=== PATIENT | female | born 1980 | race Caucasian/White ===

== ENCOUNTER 2017-08-03 18:32 | Emergency (ER) | payer MEDICAID, OTHER ==
[~2017-08-03] VITALS: Ht 165.1 cm; Wt 75.0 kg
[~2017-08-03 18:32] MED LIST: LOW-TAB2 PO
[2017-08-03 18:48] VITALS: BP 119/75; PULSE 72; RESP 18; TEMP 99; O2SAT 100
--- NOTE | 2017-08-03 23:25 | PD ---
HPI Chief Complaint: Psychiatric Symptoms Time Seen by Provider: 22:26 Travel History International Travel<30 days: No Contact w/Intl Traveler<30days: No Traveled to known affect area: No History of Present Illness HPI 37-year-old white female 15 week IUP presents as a transfer from [facility]. The patient was seen and treated for a Xanax overdose. She had been drinking alcohol earlier and had taken 10 0.5 mg Xanax after having an argument with her daughter. Time of ingestion was approximately 23 hours ago. Patient denies any homicidal ideation. No medical complaints. No nausea vomiting. She had been medically cleared and transferred here to [place] for psychological evaluation and treatment on her Leon act. The patient here states that she is not truly suicidal. No abdominal pain. No leakage of fluid or vaginal bleeding. PFSH Past Medical History Narrative Medical Anxiety Diminished Hearing: No Tetanus Vaccination: < 5 Years ?: LMP: 04/19/2017 Para: 2 Social History Alcohol Use: Yes (2-4 GLASSES WINE DAILY) Tobacco Use: No Substance Use: Yes (ETOH ABUSE) Allergies-Medications (Allergen,Severity, Reaction): Uncoded Allergies: NKDA (Allergy, Intermediate, 08/28/11) Reported Meds & Prescriptions Reported Meds & Active Scripts Active Reported Low-Ogestrel (Ethinyl Estradiol/Norgestrel) 28 Tab Pack 1 Tab PO DAILY Review of Systems General / Constitutional: No: Fever Eyes: No: Visual changes HENT: No: Headaches Cardiovascular: No: Chest Pain or Discomfort Respiratory: No: Shortness of Breath Gastrointestinal: No: Abdominal Pain Genitourinary: No: Dysuria Musculoskeletal: No: Pain Skin: No Rash Neurologic: No: Weakness Psychiatric: Positive: Anxiety, Depression, Suicidal Ideations, Mood Disorder, Substance Abuse, No: Disorder of Thought, Homicidal Ideation Endocrine: No: Polydipsia Hematologic/Lymphatic: No: Easy Bruising Physical Exam Narrative GENERAL: Well-developed, well-nourished in no apparent distress. Nontoxic appearing. HEAD: Normocephalic, atraumatic. EYES: Pupils equal round and reactive. Extraocular motions intact. No scleral icterus. No injection or drainage. ENT: Nose clear. Throat without erythema, tonsillar hypertrophy or exudate. Uvula midline. Airway patent. NECK: Trachea midline. Supple, nontender, moves head freely. No central bony tenderness or spasm. CARDIOVASCULAR: Regular rate and rhythm without murmurs, gallops, or rubs. RESPIRATORY: Clear to auscultation. Breath sounds equal bilaterally. No wheezes , rales, or rhonchi. GASTROINTESTINAL: Abdomen soft, non-tender, gravid. No hepato-splenomegaly, or palpable masses. No guarding. EXTREMITIES: No clubbing, cyanosis, or edema. No joint tenderness. BACK: Nontender without deformity. No flank tenderness. NEUROLOGICAL: Awake, alert and oriented x 3 .Cranial nerves grossly intact. Motor and sensory grossly within normal limits. Normal speech. Data Data Last Documented VS Vital Signs Date Time Temp Pulse Resp B/P (MAP) Pulse Ox O2 Delivery O2 Flow Rate FiO2 08/03/17 18:48 99.0 72 18 119/75 (90) 100 Room Air Orders Orders Psych Screen (08/03/17 20:24) MDM Medical Decision Making Medical Screen Exam Complete: Yes Emergency Medical Condition: Yes Medical Record Reviewed: Yes Differential Diagnosis MDM: High Differential diagnoses: Schizophrenia, schizoaffective disorder, bipolar, anxiety, depression, adjustment reaction, mood disorder NOS, ODD, depressive disorder NOS, dementia, dementia with agitation, psychosis NOS, substance induced mood disorder, DMDD, Asperger syndrome, infection,electrolyte abnormality, malingering. Narrative Course Mental health screening discussed with the patient. Psychiatric screen ordered. The patient has already been cleared at [facility]. She is resting comfortable in the examination room. Diagnosis Primary Impression: Intentional Xanax overdose Additional Impression: Condition: Stable Syed Arredondo August 03, 2017 23:25
[2017-08-04 01:32] VITALS: BP 110/72; PULSE 70; RESP 18; TEMP 98.1; O2SAT 100
[2017-08-04 06:47] VITALS: BP 127/75; PULSE 67; RESP 17; TEMP 98.2; O2SAT 99
[2017-08-04] MEDS ORDERED: ACETAMINOPHEN 500 MG CPLT PO ONE (10:30)
--- NOTE | 2017-08-04 11:31 | PD ---
History of Present Illness Chief Complaint: Psychiatric Symptoms Time Seen by Provider: 10:40 Travel History International Travel<30 Days: No Contact w/Intl Traveler<30days: No Known affected area: No Legal Status Legal Status: Leon Act Leon Act Signed By: Moo Barrios History of Present Illness: History of Present Illness HPI 37-year-old white, female 15 week IUP, with history of depression and anxiety, who presents as a transfer from [facility] and under a Leon act after the patient took #10 of 0.5 mg Xanax tablets along with alcohol as a suspected overdose in contacts of being involved in an argument with her 17-year -old daughter. She was medically cleared at that facility. The patient reported to ED provider that "she is not truly suicidal." Patient was monitored in secure environment and presented no suicidality and no behavior dysregulation. Electronic medical record is reviewed. She has 1 visit to the ED in 2011 with alcohol use issues. At that time she was sent to [facility]. The patient's blood alcohol level on arrival to the other facility was 255. The patient is seen. She is clinically sober. She is awake, alert, oriented, engaging and cooperative. She is maintaining basic hygiene. Speech is clear and logical, of normal rate and tone. Mood is mildly depressed. There is no evidence of any psychosis, no ricky or hypomania. She denies suicidal or homicidal ideation, intent or plan. Patient states that for the last several weeks she has been arguing with her 17-year-old daughter who is graduating from high school and who is wanting the family to buy her a car. She also states that she is somewhat hormonal due to the . She denies that she took the medication with intention to harming herself or her unborn child. She states" I told my that I just wanted to go to sleep for some time. I wanted to calm down." The patient goes on to state that she will not hurt herself because she loves her kids as well as she loves her and her life. Remainder of the psychiatric review of system is negative Telephone call to her Hai at [phone] to obtain collateral information. The states that he has no concerns for the patient's safety if she were to be discharged. He does state that he was concerned because she made a poor decision but that he feels safe to pick her up from the hospital. I have discussed with him my recommendation for the patient to remain abstinent from alcohol as well as to follow up with her outpatient psychiatric provider and her counselor. PFSH Past Medical History Diminished Hearing: No Tetanus Vaccination: < 5 Years ?: LMP: 04/19/2017 Para: 2 Psychiatric History Psychiatric History Hx Psychiatric Treatment: Patient with a past admit to [facility] after a suicide threat in 2011. Currently receives psychiatric treatment at [facility] in [place] and sees JORDAN Hebert. She also sees a counselor. Reports medication compliance. No previous suicide attempt. No history of self-injurious behavior History of Inpatient Treatment: No (Was at [facility] in 2011 under a Leon act.) Guns or firearms in home: No Social History Patient has been for 3 years. Lives with her and her 17-year- old daughter 14-year-old, 2-year-old and 4-year-old. She is currently . 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 Hx Alcohol Use: Yes (2-4 GLASSES WINE DAILY) Hx Tobacco Use: No Hx Substance Use: Yes Substance Use Type: Alcohol (She denies that she drinks on a daily basis states that she only drinks socially), Nicotine/Cigarettes Other Substances Used: occassional alcohol and nicotine Hx of Substance Use Treatment: No Family Psychiatric History Negative Allergies-Medications (Allergen,Severity, Reaction): Uncoded Allergies: NKDA (Allergy, Intermediate, 08/28/11) Reported Meds & Prescriptions Reported Meds & Active Scripts Active Reported Low-Ogestrel (Ethinyl Estradiol/Norgestrel) 28 Tab Pack 1 Tab PO DAILY Review of Systems Psychiatric: COMPLAINS OF: Anxiety Except as stated in HPI: all other systems reviewed are Neg Mental Status Examination Appearance: Appropriate Consciousness: Alert Orientation: x4 Motor Activity: Normal gait Speech: Unremarkable Language: Adequate Fund of Knowledge: Adequate Attention and Concentration: Adequate Memory: Unremarkable Mood: Appropriate Affect: Appropriate Thought Process & Associations: Intact, Logical, Goal directed Thought Content: Appropriate Hallucination Type: None Delusion Type: None, Bizarre Suicidal Ideation: No Suicidal Plan: No Suicidal Intention: No Homicidal Ideation: No Homicidal Plan: No Homicidal Intention: No Insight: Adequate Judgment: Impulsive MDM Medical Decision Making Medical Record Reviewed: Yes Assessment/Plan History of Present Illness HPI 37-year-old female with history of depression and anxiety who in context of an argument with her teenage daughter as well as having consumed 3 glasses of wine took #10 Xanax of 0.5 mg with the intention of falling asleep. She tells me that she was not intending to end her life or harm herself or that of her unborn child. She also tells me that she knows that that was not a lethal dosage. She denies any suicidal or homicidal ideation, intent or plan. The patient is cognitively intact. She is future oriented with adequate protective factors and states that she would not harm herself or her kids or her . She allowed me to contact her and he presented no concerns regarding her safety if she were to be discharge. I have advised her to remain free of alcohol. I have also encouraged her to follow up with her outpatient provider and she has an appointment coming up within the next couple of weeks. At this time the patient does not present criteria to remain under the Leon act. It will be lifted. Psychiatrically clear for discharge from the ED. Orders Orders Psych Screen (08/03/17 20:24) Diet Regular Basic (08/04/17 Breakfast) Acetaminophen (Tylenol) (08/04/17 10:30) Diet Regular Basic (08/04/17 Lunch) Results Vital Signs Date Time Temp Pulse Resp B/P (MAP) Pulse Ox O2 Delivery O2 Flow Rate FiO2 08/04/17 06:47 98.2 67 17 127/75 (92) 99 Room Air 08/04/17 01:32 98.1 70 18 110/72 (85) 100 Room Air 08/03/17 18:48 99.0 72 18 119/75 (90) 100 Room Air Diagnosis Primary Impression: Intentional Xanax overdose Additional Impressions: Adjustment disorder Alcohol intoxication Psychiatrically Cleared: Yes Med/ Other Pt Specific Info: No Change to Meds Disposition: 01 DISCHARGE HOME Condition: Stable Problem Qualifiers Additional Impressions: Adjustment disorder Qualified Codes: F43.23 - Adjustment disorder with mixed anxiety and depressed mood Alcohol intoxication Qualified Codes: F10.920 - Alcohol use, unspecified with intoxication, uncomplicated Jany Moreira August 04, 2017 11:31
--- NOTE | 2017-08-04 12:03 | PD ---
Physical Exam Time Seen by Provider: 12:02 Narrative Please review previous providers documentation for details surrounding the patient's current visit. Data Data Last Documented VS Vital Signs Date Time Temp Pulse Resp B/P (MAP) Pulse Ox O2 Delivery O2 Flow Rate FiO2 08/04/17 06:47 98.2 67 17 127/75 (92) 99 Room Air Orders Orders Psych Screen (08/03/17 20:24) Diet Regular Basic (08/04/17 Breakfast) Acetaminophen (Tylenol) (08/04/17 10:30) Diet Regular Basic (08/04/17 Lunch) Ed Discharge Order (08/04/17 12:01) MDM Medical Record Reviewed: Yes Supervised Visit with WADE: No Narrative Course Patient has been seen and evaluated, medically clear, and then evaluated by psychiatry. She will be discharged home at this time with no further medical needs. Diagnosis Primary Impression: Intentional Xanax overdose Additional Impressions: Alcohol intoxication Adjustment disorder Disposition: 01 DISCHARGE HOME Condition: Stable Arabella Devi August 04, 2017 12:03
== END 2017-08-04 13:46 | disposition home or self-care (01) ==
LOC: NEPJ 18:32
DX: O9A.212 Injury, poisoning and certain other consequences of external causes complicating pregnancy, second trimester (principal); T42.4X2A Poisoning by benzodiazepines, intentional self-harm, initial encounter; O09.522 Supervision of elderly multigravida, second trimester; O99.342 Other mental disorders complicating pregnancy, second trimester; F43.23 Adjustment disorder with mixed anxiety and depressed mood; O99.312 Alcohol use complicating pregnancy, second trimester; F10.129 Alcohol abuse with intoxication, unspecified; Y90.8 Blood alcohol level of 240 mg/100 ml or more; Z3A.15 15 weeks gestation of pregnancy
CPT/HCPCS: 99283